=== PATIENT | female | born 1950 | race Caucasian/White ===

== ENCOUNTER → 2017-12-03 | Outpatient (CLI) | payer OTHER, BC ==
[~2017-12-03] MED LIST: ATENOLOL 25 MG25 M1 PO; AZITHROMYC200 MG/51 PO; IBUPROFEN 200200 M1 PO; MELATONIN 5 MG1 EAC1 PO; NORCO 5-325 TA1 EACH PO; OXYBUTYNIN ER 55 MG PO; PRAVACHOL40 MG PO; PROAIR HFA8.5 GM INH; PROTONIX40 M2 PO; TYLENOL EX-STR500 M2 PO; TYLENOL P.M. E1 EAC3 PO; XANAX XR1 MG PO
== END ==
LOC: MRI 09:56
DX: S83.281A Other tear of lateral meniscus, current injury, right knee, initial encounter (principal); S83.241A Other tear of medial meniscus, current injury, right knee, initial encounter; M71.21 Synovial cyst of popliteal space [Baker], right knee; M25.461 Effusion, right knee; E78.5 Hyperlipidemia, unspecified; J45.909 Unspecified asthma, uncomplicated; K21.9 Gastro-esophageal reflux disease without esophagitis; X58.XXXA Exposure to other specified factors, initial encounter; Y93.89 Activity, other specified; Y92.89 Other specified places as the place of occurrence of the external cause; Y99.8 Other external cause status

== ENCOUNTER → 2018-01-27 | Outpatient (CLI) | payer OTHER, BC | LOC: ULTRA 09:30 | DX: M79.89 Other specified soft tissue disorders (principal); M79.604 Pain in right leg ==

== ENCOUNTER → 2018-05-11 | Outpatient (CLI) | payer OTHER, BC | LOC: ULTRA 15:04 | DX: M71.21 Synovial cyst of popliteal space [Baker], right knee (principal) ==

== ENCOUNTER 2018-05-24 17:00 | Inpatient (IN) | payer OTHER, BC ==
[~2018-05-24] VITALS: Ht 167.6 cm; Wt 108.9 kg
[2018-05-24 17:02] VITALS: BP 188/86
[2018-05-24 18:19] LABS: URINE BILIRUBIN NEGATIVE (Negative); URINE BLOOD NEGATIVE (Negative); URINE CLARITY CLEAR; URINE COLOR YELLOW; URINE GLUCOSE-RANDOM* NEGATIVE (Negative); URINE KETONES NEGATIVE (Negative); URINE LEUKOCYTES NEGATIVE (Negative); URINE NITRITE NEGATIVE (Negative); URINE PROTEIN (DIPSTICK) NEGATIVE (Negative); URINE UROBILINOGEN 0.2 E.U./dl (0.2-1.0)
--- NOTE | 2018-05-24 18:20 | NUR ---
DR. MCCARTHY AT BEDSIDE.
[2018-05-24 18:21] LABS: EOSINOPHILS 0.9 % (0.0-3.0); HEMATOCRIT 41.7 % (37.0-47.0); HEMOGLOBIN 14.3 gm/dL (12.0-15.0); MCH 29.7 pg (26.0-34.0); MCHC 34.2 g/dL (28.0-37.0); MONOCYTES 8.8 % (1.0-8.0); PLATELET COUNT 131 thou/uL (150-400); POLYS 63.3 % (36.0-66.0); RBC 4.79 mil/uL (4.20-5.00); RDW 14.2 % (10.5-14.5); WBC 6.4 thou/uL (4.0-11.0)
[2018-05-24 18:30] LABS: CALCIUM 9.5 mg/dL (8.5-10.1); CREATININE 1.2 mg/dL (0.6-1.0); POTASSIUM 3.9 mmol/L (3.5-5.1)
[2018-05-24 18:36] LABS: ALBUMIN 4.2 g/dL (3.4-5.0); TOTAL BILIRUBIN 1.1 mg/dL (<0.1-1.0); TOTAL PROTEIN 7.6 g/dL (6.4-8.2)
[2018-05-24] MEDS ORDERED: MELATONIN5 M1 PO (21:39)
[2018-05-24] MEDS ORDERED: MOBIC15 MG PO (21:40)
[2018-05-24] MEDS ORDERED: LIPITOR 20 MG T20 M1 PO (21:41)
[2018-05-24] MEDS ORDERED: TRAMADOL 50 MG50 MG PO (21:41)
[2018-05-24 21:54] VITALS: BP 158/67
[2018-05-24 22:50] VITALS: BP 170/79
[2018-05-24 23:05] VITALS: BP 182/72
[2018-05-24 23:35] VITALS: BP 202/100
--- NOTE | 2018-05-25 00:06 | EKG ---
[address] [email or web address] [address] ELECTROCARDIOGRAM REPORT Name: SRUTHI BOUCHER Room #: 219-P ADM IN M.R.#: [id number] ������������������ Admission: 05/24/18 ������������������ Attend Phys: Shon Lewis MD Discharge: ������������������ Date of : 52 Report #: [id number] ����������������������������������������������������������������� [id number] THIS REPORT FOR: //name// [facility] ED Test Date: 2018-05-24 Test Time: 17:05:43 Pat Name: SRUTHI BOUCHER Department: Room: 219 Gender: F [employer] Technical Officer: MELISA : 1950 Requested By: Darlin Claire Order Number: [id number] MD: Saurav Uriostegui Measurements Intervals [place] Rate: 73 P: 50 DC: 164 QRS: -9 QRSD: 93 T: 10 QT: 384 QTc: 424 Interpretive Statements Sinus rhythm non specific st/t wave changes Compared to ECG 10/06/2010 04:20:52 no significant changes Electronically Signed On 05-25-2018 0:05:58 CDT by Saurav Uriostegui [email or web address] ��������������������������������������������� <ELECTRONICALLY SIGNED> ���������������������������������������� By: Saurav Uriostegui MD ��������������������������������������������� 05/25/18 0005 1705 1705 Saurav Uriostegui MD /EPI
--- NOTE | 2018-05-25 01:28 | NUR ---
PT ADMITTED TO ROM 219 WITH SOA, BP ELEVATED HOME MEDS GIVEN AND PRN PAIN MED GIVEN FOR R[place], WILL RECHECK BP, SL IN L AC, RA SAT 98%, PT RESTING QUIETLY IN ROOM, WILL CON'T TO MONITOR PER PPOC.
[2018-05-25 01:46] VITALS: BP 152/85
[2018-05-25 03:29] VITALS: BP 139/59
[2018-05-25 08:00] VITALS: BP 137/79
--- NOTE | 2018-05-25 11:33 | NUR ---
PT OFF UNIT FOR ECHO AND NUC MED STRESS TEST.
--- NOTE | 2018-05-25 12:06 | 2DMMODE ---
[facility] [address] [place] [address] 2 D/M-MODE ECHOCARDIOGRAM Name: MARYAMPEPPERSRUTHI Room #: 219-P ADM IN M.R.#: [id number] ������������� Admission: 05/24/18 ������������� Attend Phys: Liyah García MD Discharge: ��� ������������� ��� Date of : 52 Date of Service: 05/25/18 1206 �� Report #: [id number] �������� ��������������������������������������������[id number] THIS REPORT FOR: //name// APPROVED REPORT Study performed: 05/25/2018 11:14:09 EXAM: Comprehensive 2D, Doppler, and color-flow Echocardiogram Patient Location: Echo lab Room #: 219 Status: routine BSA: 2.16 HR: 58 bpm BP: 137/79 mmHg Rhythm: Bradycardia Other Information Study Quality: Good Indications COPD Dyspnea Chest Pain Hypertension/HDD 2D Dimensions RVDd: 28.82 mm IVSd: 7.88 (7-11mm) LVOT Diam: 18.78 (18-24mm) LVDd: 43.95 mm PWd: 10.46 (7-11mm) Ascending Ao: 29.05 (22-36mm) LVDs: 28.35 (25-40mm) Aortic Root: 30.36 mm IVC: 19.00 mm Volumes Left Atrial Volume (Systole) Single Plane 4CH: 44.65 mL Single Plane 2CH: 46.77 mL LA ESV Index: 23.00 mL/m2 Aortic Valve AoV Peak Evangelist.: 1.26 m/s AO Peak Gr.: 6.31 mmHg LVOT Max P.55 mmHg LVOT Max V: 0.94 m/s JASON Vmax: 2.08 cm2 Mitral Valve [facility] [address] [place] [address] 2 D/M-MODE ECHOCARDIOGRAM Name: SANDERSRUTHI Room #: 219-P [facility] IN .R.#: [id number] ������������� Admission: 05/24/18 ������������� Attend Phys: Liyah García MD Discharge: ��� ������������� ��� Date of : 52 Date of Service: 05/25/18 1206 �� Report #: [id number] �������� ��������������������������������������������[id number] E/A Ratio: 1.7 MV Decel. Time: 166.25 ms MV E Max Evangelist.: 1.06 m/s MV A Evangelist.: 0.64 m/s MV PHT: 48.21 ms IVRT: 87.66 ms Pulmonary Valve PV Peak Evangelist.: 0.70 m/s PV Peak Gr.: 1.98 mmHg Pulmonary Vein P Vein S: 0.58 m/s P Vein A: 0.32 m/s P Vein D: 0.82 m/s P Vein A Dur.: 87.7 msec P Vein S/D Ratio: 0.71 Tricuspid Valve TR Peak Evangelist.: 2.81 m/s TR Peak Gr.: 31.58 mmHg PA Pressure: 36.00 mmHg Left Ventricle The left ventricle is normal size. There is normal LV segmental wall motion. There is normal left ventricular wall thickness. The left ventricular systolic function is normal. The left ventricular ejection fraction is within the normal range. LVEF is 55-60%. Grade II - pseudonormal filling dynamics. Right Ventricle The right ventricle is normal size. The right ventricular systolic function is normal. Atria The left atrium size is normal. The right atrium size is normal. Aortic Valve The aortic valve is normal in structure. No aortic regurgitation is present. There is no aortic valvular stenosis. Mitral Valve The mitral valve is normal in structure. Mild mitral regurgitation. No evidence of mitral valve stenosis. Tricuspid Valve The tricuspid valve is normal in structure. There is trace tricuspid regurgitation. Estimated PAP 36 mmHg. There is mild pulmonary [facility] [address] [place] [address] 2 D/M-MODE ECHOCARDIOGRAM Name: SRUTHI BOUCHER Room #: 219-P [facility] IN .R.#: [id number] ������������� Admission: 05/24/18 ������������� Attend Phys: Liyah García MD Discharge: ��� ������������� ��� Date of : 52 Date of Service: 05/25/18 1206 �� Report #: [id number] �������� ��������������������������������������������[id number] hypertension. Pulmonic Valve The pulmonary valve is normal in structure. There is no pulmonic valvular regurgitation. Great Vessels The aortic root is normal in size. IVC is normal in size and collapses >50% with inspiration. Pericardium There is no pericardial effusion. <Conclusion> The left ventricle is normal size. There is normal left ventricular wall thickness. The left ventricular systolic function is normal. Grade II - pseudonormal filling dynamics. The right ventricle is normal size. The left atrium size is normal. The right atrium size is normal. The aortic valve is normal in structure. Mild mitral regurgitation. There is trace tricuspid regurgitation. Estimated PAP 36 mmHg. ��������������������������������������������� <ELECTRONICALLY SIGNED> ���������������������������������������� By: Alton Crnoin MD ��������������������������������������������� 05/25/18 1206 05 05 Alton Cronin MD /INF
[2018-05-25 16:00] VITALS: BP 150/69
[2018-05-25 19:25] VITALS: BP 141/64
--- NOTE | 2018-05-26 03:23 | NUR ---
AOX4. SB TO SR ON THE MONITOR. PULSES 2+/1+. SLIGHT RIGHT KNEE SWELLING NOTED. DENIES SOA, CHEST TIGHTNESS, DIZZINESS, TINGLING AND NUMBNESS. COMPLAINT OF TWITCHING PAIN, PINS AND NEEDLES, 6/10, ON BILATERAL FOOT, MANGED WITH PRN TRAMADOL. VOIDS WELL. IV ON THE LEFT AC SALINE LOCKED, INTACT AND FLUSHES WELL. PATIENT WAS ABLE TO TOLERATE WALKING 2 LAPS AROUND THE UNITS HALLWAY. FF UP OC.
[2018-05-26 05:37] VITALS: BP 115/41
[2018-05-26 07:17] VITALS: BP 139/64
[2018-05-26 11:24] VITALS: BP 159/75
[2018-05-26] MEDS ORDERED: ACETAMINOPHEN325 M1 PO (11:53)
[2018-05-26] MEDS ORDERED: PREDNISONE 20 M20 M1 PO (11:53)
[2018-05-26] MEDS ORDERED: IPRAT-ALBUT 0.5-3 ML INH (11:53)
[2018-05-26 14:50] VITALS: BP 161/70
[2018-05-26 15:51] VITALS: BP 161/70
--- NOTE | 2018-05-27 18:45 | HC ---
[facility] [place] [address] [place] [address] CONSULTATION Name: SRUTHI BOUCHER Room #: 219-P [facility] IN M.R.#: [id number] Admission: 05/24/18 ������������������ Attend Phys: Liyah García MD Discharge: 05/26/18 ������������������ Date of : 52 Report #: [id number] THIS REPORT FOR: //name// CC: Liyah Duke PULMONARY CONSULTATION PRIMARY CARE PHYSICIAN: Warren Duke M.D. REFERRING PHYSICIAN: Alaln Mims M.D. REASON FOR REFERRAL: Dyspnea. HISTORY OF PRESENT ILLNESS: The patient is a 67-year-old white female who presents to the ED with progressive dyspnea. A Pulmonary consultation was requested. The patient states that she has smoked for many years, but quit a few years ago. She has been told that she had COPD in the past. She has also been told that she had asthma in the past. When she stopped smoking, she felt fairly well. She was doing well until one day prior to presentation; she started to feel dizzy, tingling in the left arm and hands. Symptoms worsened the following morning with dyspnea. For that reason, she presents to our Emergency Room. Chest x-ray, CT chest angiogram were grossly unremarkable. Lung nelson were clear. Following corticosteroids and bronchodilators, she is much improved today. She denies any recent febrile illness, chest pain, productive cough or hemoptysis. PAST MEDICAL HISTORY: Notable for history of tobacco use, asthma, history of COPD, hypertension, hyperlipidemia, restless leg syndrome, gastroesophageal reflux disease, anxiety disorder and history of Wise esophagus. PAST SURGICAL HISTORY: Includes tonsillectomy, laparoscopic cholecystectomy, bilateral tubal ligation, sinus surgery, bilateral carpal tunnel surgery and right wrist surgery for lipoma. ALLERGIES: TO SALICYLATES, WHICH CAUSES TINNITUS; DOXYCYCLINE, WHICH CAUSES RASH; LATEX CAUSES RASH; LISINOPRIL CAUSES COUGHING AND SULFA CAUSES RASH. HOME MEDICATIONS: Include Mobic, Lipitor, melatonin, Ultram, Protonix, Tenormin, ProAir, Xanax and oxybutynin. [facility] [address] [place] [address] CONSULTATION Name: SRUTIH BOUCHER Room #: 219-P [facility] IN M.R.#: [id number] Admission: 05/24/18 ������������������ Attend Phys: Liyah García MD Discharge: 05/26/18 ������������������ Date of : 52 Report #: [id number] FAMILY HISTORY: Noncontributory. SOCIAL HISTORY: The patient has smoked for years, but quit several years ago. She denies any alcohol use. She has a daughter who is a physician. REVIEW OF SYSTEMS: As mentioned above; otherwise, 10-point system review negative. PHYSICAL EXAMINATION: GENERAL: On examination, she is awake, alert, in no distress. VITAL SIGNS: Temperature is 98.6 degrees Fahrenheit, pulse is 73, respiratory rate is 18, blood pressure 160/70 mmHg and saturation is 95%. HEENT: Normocephalic, atraumatic. NECK: Supple, without any lymphadenopathy or thyromegaly. CHEST: Breath sounds are good bilaterally, without any rales or wheezes. CARDIOVASCULAR: Normal S1 and S2. There are no murmurs or gallops. There is no JVD. There is no carotid bruit. Pulses are 2+/4+ bilaterally. ABDOMEN: Soft, nontender. No organomegaly or masses felt. GENITOURINARY: Deferred. RECTAL: Deferred. EXTREMITIES: There is no edema, cyanosis or clubbing. LABORATORY DATA: Chest x-ray and chest CT angiogram, as mentioned above, were grossly unremarkable, without evidence of pulmonary embolus or infiltrates. Echocardiogram was grossly unremarkable. Troponin was normal. CT head was unremarkable. Electrolytes were normal, except for creatinine of 1.2. WBC 6400, hemoglobin 14.3. IMPRESSION: 1. Dyspnea in this 67-year-old white female. She has smoked in the past. She has a history of asthma/chronic obstructive pulmonary disease. Suspect exacerbation of asthma/chronic obstructive pulmonary disease overlap syndrome, possible overlap syndrome. She is much improved following steroids and bronchodilators. 2. Remote history of tobacco use. 3. Hypertension. 4. Restless leg syndrome. 5. Gastroesophageal reflux disease. RECOMMENDATIONS: I agree with plans for discharge. I will recommend prednisone 40 mg once a day for 5 days, inhaled corticosteroids and bronchodilators for outpatient use along with albuterol MDI p.r.n. I would strongly recommend that she follows up in the Pulmonary office in 2-4 weeks for further assessment including PFTs. I have discussed the above findings with the patient. She voices understanding. [address] [address] CONSULTATION Name: SRUTHI BOUCHER Room #: 219-P DIS IN M.R.#: [id number] Admission: 05/24/18 ������������������ Attend Phys: Liyah García MD Discharge: 05/26/18 ������������������ Date of : 52 Report #: [id number] Thank you for this consultation. ��������������������������������������������� <ELECTRONICALLY SIGNED> ���������������������������������������� By: Trae Knpap MD ��������������������������������������������� 05/27/18 1845 1822 1112 Trae Knapp MD /jenn
[2018-05-28] MEDS ORDERED: NEBULIZER MISCELL (15:49)
--- NOTE | 2018-05-28 16:01 | NUR ---
Call rec'd from the pt today that she does not have nebulizer and was sent home with a script for albuterol txs. Service Tester spoke with the hospitalist and a script was faxed to [facility]. [place] to pt's home requested. Message left for pt regarding the above arrangements. Pt also encouraged to make a f/u appt with her pcp.
== END 2018-05-26 17:16 | disposition home or self-care (01) | DRG 192 ==
LOC: ER 17:00 → 2N 20:50 → EROBS 20:50 → 2N 22:50 → ENTRNSPT 05-26 16:19 → 2N 05-26 17:16
PROVIDERS: Student in an Organized Health Care Education/Training Program; ADMIT Internal Medicine
DX: J44.1 Chronic obstructive pulmonary disease with (acute) exacerbation (principal); I16.0 Hypertensive urgency; I10 Essential (primary) hypertension; E78.5 Hyperlipidemia, unspecified; K21.9 Gastro-esophageal reflux disease without esophagitis; M19.90 Unspecified osteoarthritis, unspecified site; G25.81 Restless legs syndrome; F41.9 Anxiety disorder, unspecified; Z87.891 Personal history of nicotine dependence; Z90.49 Acquired absence of other specified parts of digestive tract; Z79.899 Other long term (current) drug therapy; Z88.2 Allergy status to sulfonamides; Z88.8 Allergy status to other drugs, medicaments and biological substances; Z88.6 Allergy status to analgesic agent; Z88.1 Allergy status to other antibiotic agents; Z91.040 Latex allergy status
CPT/HCPCS: 10081